=== PATIENT | female | born 1940 | race Caucasian/White ===

== ENCOUNTER 2017-07-13 13:31 | Emergency (ER) | payer MEDICARE, BC ==
--- NOTE | 2017-07-13 14:26 | EDM.PDOC ---
<Katie Huber - Last Filed: 07/13/17 15:40> ED HPI GENERAL MEDICAL PROBLEM - General Chief Complaint: Lower Extremity Injury/Pain Stated Complaint: RIGHT FOOT INJURY Time Seen by Provider: 07/13/17 14:18 Source of Information: Reports: Patient History Limitations: Reports: No Limitations - History of Present Illness INITIAL COMMENTS - FREE TEXT/NARRATIVE: Patient is a 76 YO female who represents with right foot pain. She states she was walking in her kitchen around 1230 today when she heard a loud pop with pain to the right lateral foot proximal to the 4th toe. She took 2 tylenol and tried to take a nap but the pain is not getting better. She is able to ambulate. She has numbness to the toes but this has been present for about 1 year. She has a history of fracture to both the right and the left foot after jumping off a retaining wall. Right Feet Pain Score (Numeric/FACES): 7 - Related Data Allergies Allergy/AdvReac Type Severity Reaction Status Date / Time cetirizine HCl [From Zyrtec] Allergy Hives Verified 07/13/17 13:41 diphenhydramine HCl AdvReac Nausea Verified 07/13/17 13:41 [From Benadryl Allergy] Home Meds: Home Meds Cyanocobalamin (Vitamin B12) [Vitamin B12] 1,000 mcg IJ ASDIRECTED 07/13/17 [ History] Denosumab [Prolia] 60 mg INJECT ASDIRECTED 07/13/17 [History] Folic Acid 1 mg PO DAILY 07/13/17 [History] Levothyroxine [Sythroid] 100 mcg PO DAILY 07/13/17 [History] Losartan [Cozaar] 50 mg PO DAILY 07/13/17 [History] Methotrexate Sodium [Methotrexate] 6 mg PO TU 07/13/17 [History] amLODIPine Besylate [Amlodipine Besylate] 5 mg PO DAILY 07/13/17 [History] Past Medical History Cardiovascular History: Reports: Hypertension Endocrine/Metabolic History: Reports: Hypothyroidism, Osteopenia Social & Family History - Tobacco Use Smoking Status *Q: Never Smoker - Caffeine Use Caffeine Use: Reports: Coffee - Recreational Drug Use Recreational Drug Use: No Review of Systems - Review of Systems Review Of Systems: See Below Constitutional: Reports: No Symptoms Musculoskeletal: Reports: Foot Pain (right 4th metatarsal) Skin: Reports: No Symptoms Psychiatric: Reports: No Symptoms ED EXAM, GENERAL - Physical Exam Exam: See Below Exam Limited By: No Limitations General Appearance: Alert, WD/WN, No Apparent Distress Respiratory/Chest: No Respiratory Distress Extremities: Normal Capillary Refill (right toes), Other (no swelling, no redness to the right foot. Full ROM in all toes and ankle) Neurological: Alert, Oriented, CN II-XII Intact, Normal Cognition, No Motor/ Sensory Deficits, Other (patient ambulating with a cane) Psychiatric: Normal Affect, Normal Mood Skin Exam: Warm, Dry, Intact, Normal Color, No Rash Course - Vital Signs Last Recorded V/S: Last Vital Signs Temp 36.5 C 07/13/17 13:38 Pulse 66 07/13/17 13:38 Resp 16 07/13/17 13:38 BP 120/102 H 07/13/17 13:38 Pulse Ox 97 07/13/17 13:38 Departure - Departure Disposition: Home, Self-Care 01 Clinical Impression: Injury of foot - Discharge Information Referrals: Ana Sargent MD [Primary Care Provider] - Rodo Mosley MD [Physician] - Forms: ED Department Discharge Additional Instructions: Wear the walking boot at all times. May remove to shower. Follow-up with orthopedics within 1 week for recheck. Recommend Dr. Mosley call [phone] to schedule with him. Continue with [id number] Tylenol or Motrin as needed for pain. Please return to the ER if your symptoms change or worsen. <Mallory Shaw - Last Filed: 07/14/17 19:21> ED HPI GENERAL MEDICAL PROBLEM - History of Present Illness INITIAL COMMENTS - FREE TEXT/NARRATIVE: I have seen the patient and agree with the HPI as documented by ROSHAN Martinez. ED EXAM, GENERAL - Physical Exam Peripheral Pulses: 2+: Posterior Tibial (L), Posterior Tibial (R), Dorsalis Pedis (L), Dorsalis Pedis (R) Extremities: Normal Range of Motion (mild swelling to the dorsal foot over metatarsals 1-3; tenderness to palpation to the ventral distal 4th and 5th metatarsals). No: Increased Warmth, Redness Course - Radiology Interpretation Free Text/Narrative:: X-ray shows no acute fractures or dislocations. - Re-Assessments/Exams Free Text/Narrative Re-Assessment/Exam: 07/13/17 15:03 I have seen the patient and agree with the HPI, ROS and PE as documented by ROSHAN Martinez. Reviewed the x-ray with the patient. Will put in a walking boot. Likely ligamentous injury. Discharge instructions as documented. Departure - Departure Time of Disposition: 15:04 Condition: Fair
--- NOTE | 2017-07-14 09:57 | CR ---
Right foot: Four views of the right foot were obtained. Comparison: No prior study. Deformity is noted within the first MTP joint which is felt compatible with previous surgery and possibly failed fusion. Flattening is noted of the distal second metatarsal head which appears to be old. Slight deformity within the proximal shaft of the fifth metatarsal is seen most likely due to old healed fracture. No calcaneal spurs are seen. No acute bony abnormality is seen. Impression: 1. Findings as noted above. Nothing acute is seen. Diagnostic code #2
== END 2017-07-13 15:15 | disposition home or self-care (01) ==
LOC: JD.ED 13:31
DX: S99.921A Unspecified injury of right foot, initial encounter (principal); I10 Essential (primary) hypertension; E03.9 Hypothyroidism, unspecified; Z88.1 Allergy status to other antibiotic agents; Z79.899 Other long term (current) drug therapy; X50.9XXA Other and unspecified overexertion or strenuous movements or postures, initial encounter
CPT/HCPCS: 73630-26-RT; 73630-RT; 99283